=== PATIENT | female | born 1995 | race Caucasian/White ===

== ENCOUNTER 2017-03-24 12:01 | Emergency (ER) | payer OTHER ==
[~2017-03-24] VITALS: Ht 177.8 cm; Wt 63.5 kg
[2017-03-24 12:30] VITALS: BP 111/86
== END 2017-03-24 12:48 | disposition home or self-care (01) ==
LOC: ER 12:01
DX: H66.92 Otitis media, unspecified, left ear (principal)

== ENCOUNTER 2017-03-29 14:31 | Emergency (ER) | payer OTHER ==
[~2017-03-29] VITALS: Ht 177.8 cm; Wt 63.5 kg
[2017-03-29 15:24] VITALS: BP 91/74
== END 2017-03-29 15:50 | disposition home or self-care (01) ==
LOC: ER 14:31
DX: M26.602 Left temporomandibular joint disorder, unspecified (principal); H66.91 Otitis media, unspecified, right ear